=== PATIENT | male | born 1985 | race Caucasian/White ===

== ENCOUNTER 2018-05-25 09:35 | Emergency (ER) | payer SELFPAY ==
[2018-05-25 09:40] VITALS: BP 147/92
--- NOTE | 2018-05-25 09:49 | ER Document Report ---
HPI - HPI Patient complains to provider of: Abscess Onset: Other - Tuesday Onset/Duration: Gradual Pain Level: 4 Context: 33-year-old male with known history of MRSA is complaining of a possible bug bite to his right groin. Is gotten bigger and more painful since Tuesday. No fever or chills. Associated Symptoms: None Exacerbated by: Movement Relieved by: Denies Similar symptoms previously: No Recently seen / treated by doctor: No - ROS ROS below otherwise negative: Yes Systems Reviewed and Negative: Yes All other systems reviewed and negative Past Medical History - General Information source: Patient - Social History Smoking Status: Never Smoker Frequency of alcohol use: None Drug Abuse: None Lives with: Family Family History: Reviewed & Not Pertinent Patient has suicidal ideation: No Patient has homicidal ideation: No - Medical History Medical History: Negative Renal/ Medical History: Denies: Hx Peritoneal Dialysis Surgical Hx: Negative Vertical Provider Document - CONSTITUTIONAL Agree With Documented VS: Yes - INFECTION CONTROL TRAVEL OUTSIDE OF THE [place] IN LAST 30 DAYS: No - GI/ABDOMEN Gastrointestinal: Abdomen Soft, Abdomen Non-Tender - NEURO Level of Consciousness: Awake - DERM Integumentary: Abscess - Crusted indurated 3 cm abscess right mons pubis Course - Vital Signs Vital signs: Temp Pulse Resp BP Pulse Ox 99.0 F 84 14 147/92 H 98 05/25/18 09:39 05/25/18 09:39 05/25/18 09:39 05/25/18 09:39 05/25/18 09:39 Procedures - Incision and Drainage Right Abdomen Time completed: 10:39 Type: Simple Anesthetic type: 1% Lidocaine mL's of anesthetic: 3 Blade size: 11 I&D procedure: Betadine prep applied, Sterile dressing applied - packed with corner of 4 x 4 Incision Method: Incision made by scalpel Amount/type of drainage: large pus Discharge - Discharge Clinical Impression: Abscess I&D Condition: Good Disposition: HOME, SELF-CARE Instructions: Abscess ([facility]), Trimethoprim-Sulfa ([facility]), Acetaminophen, Ibuprofen (General) ([facility]) Additional Instructions: Keep this dressing on for 2 days Warm compress Remove the dressing and packing in the shower and wash vigorously with antibacterial soap daily and dry dressing Return to the emergency room for any worsening of the symptoms increased size, pain, redness, fever Prescriptions: Ibuprofen [Motrin 600 mg Tablet] 600 mg PO Q8HP PRN #30 tablet PRN Reason: Sulfamethoxazole/Trimethoprim [Sulfamethoxazole-Tmp Ds Tablet] 1 each PO BID # 14 tablet
[2018-05-25] MEDS ORDERED: LIDOCAINE 4%/TETRACAINE 0.5%/EPI 0.18% 5 ML TOPICAL SOLN TOP ONE (09:59)
[2018-05-25] MEDS ORDERED: IBUPROFEN 600 MG TABLET PO ONE (09:59)
[2018-05-25] MEDS ORDERED: SULFAMETHOXAZOLE/TRIMETHOPRIM 800-160 MG TABLET PO ONE (09:59)
[2018-05-25] MEDS ORDERED: ONDANSETRON 4 MG TAB.RAPDIS PO ONE (09:59)
[2018-05-25] MEDS ORDERED: ACETAMINOPHEN 325 MG TABLET PO ONE (09:59)
== END 2018-05-25 10:46 | disposition home or self-care (01) ==
LOC: ER 09:35
DX: L02.211 Cutaneous abscess of abdominal wall (principal); Z86.14 Personal history of Methicillin resistant Staphylococcus aureus infection
CPT/HCPCS: 99283; 10060; S0119; J3490